=== PATIENT | female | born 1990 | race Hispanic/Latino ===

== ENCOUNTER 2021-07-12 05:59 | Emergency (ER) | payer SELFPAY ==
[~2021-07-12] VITALS: Ht 152.4 cm; Wt 54.4 kg
[2021-07-12] MEDS ORDERED: HALOPERIDOL INJ 5 MG/ML VIAL IV SCH (06:30)
[2021-07-12] MEDS ORDERED: DiphenhydrAMINE HCL 50 MG/ML VIAL IM ONE (06:30)
[2021-07-12] MEDS ORDERED: HALOPERIDOL INJ 5 MG/ML VIAL IM SCH (07:00)
[2021-07-12 08:45] VITALS: BP 109/68
[2021-07-12] MEDS ORDERED: ACET-66 PO ×2 (09:14→09:20)
== END 2021-07-12 09:33 | disposition home or self-care (01) ==
LOC: EDH 05:59
DX: R51.9 Headache, unspecified (principal)
CPT/HCPCS: 70450; 81025; 96372 ×2; 99284; J1200; J1630